=== PATIENT | female | born 1975 | race Caucasian/White ===

== ENCOUNTER 2017-03-24 18:21 | Inpatient (IN) | payer BC ==
[~2017-03-24] VITALS: Ht 160 cm; Wt 65.1 kg
[~2017-03-24 18:21] MED LIST: ADDERALL XR30 MG PO; NAPROSYN500 MG PO; VALIUM5 MG PO; VICODIN 5-3001 EACH PO
[2017-03-24 19:17] LABS: HEMATOCRIT 35.9 % (36.0-46.0); HEMOGLOBIN 12.6 G/DL (11.9-15.5); MCH 32.7 PG (29.0-34.0); MCHC 35.1 G/DL (30.0-36.0); MCV 93.2 FL (83-99); PLATELET COUNT 145 K/uL (156-360); RBC DIS.WIDTH-CV 13.4 % (11.8-14.6); RBC DIS.WIDTH-SD 46.1 % (39-53); RED BLOOD COUNT 3.85 M/uL (3.80-5.20); WHITE BLOOD COUNT 21.4 K/uL (4.1-10.2)
[2017-03-24 19:28] LABS: CHLORIDE 102 mEq/L (99-109); POTASSIUM 4.1 mEq/L (3.7-5.4); SODIUM 135 mEq/L (136-147)
[2017-03-24 19:30] LABS: GLUCOSE 107 mg/dL (70-99)
[2017-03-24 19:30] LABS: APPEARANCE SL.HAZY ((CLEAR)); BILIRUBIN NEGATIVE; BLOOD MODERATE; COLOR YELLOW ((YELLOW)); GLUCOSE (STRIP) NEGATIVE; KETONES 20; LEUKOCYTES MODERATE; NITRITE NEGATIVE; PROTEIN (STRIP) 100; SPECIFIC GRAVITY 1.015 (1.000-1.030); UROBILINOGEN 0.2 MG/DL (0.2-1.0)
[2017-03-24 19:34] LABS: GFR ESTIMATE (CALCULATED) > 59 mL/min/
[2017-03-24 19:35] LABS: UREA NITROGEN (BUN) 11 mg/dL (9-23)
[2017-03-24 19:43] LABS: QUANTITATIVE HCG < 4.0 MIU/ML
[2017-03-24 20:00] LABS: BACTERIA RARE /HPF; EPITHELIAL CELLS RARE /HPF; MUCUS TRACE /LPF; UCUL ADDED? YES; WHITE BLOOD CELLS TNTC /HPF (0-5)
[2017-03-24 21:16] LABS: TOTAL PROTEIN 7.1 g/dL (6.4-8.3)
[2017-03-24 21:18] LABS: TOTAL BILIRUBIN 0.7 mg/dL (0.0-1.0)
[2017-03-24 21:19] LABS: ALKALINE PHOSPHATASE 62 IU/L (3-129)
[2017-03-24 21:21] LABS: AST (GOT) 23 IU/L (2-34); DIRECT BILIRUBIN 0.3 mg/dL (0.0-0.3)
[2017-03-24 21:22] LABS: ALT (GPT) 22 IU/L (3-49); LIPASE 3 U/L (1.0-51.0)
[2017-03-24] MEDS ORDERED: ERGOCALCIF50000 UNIT PO (22:26)
[2017-03-24] MEDS ORDERED: ADDERALL30 MG PO (22:26)
[2017-03-24] MEDS ORDERED: ADVIL200 MG PO (22:27)
[2017-03-24] MEDS ORDERED: XANAX0.25 MG PO (22:27)
[2017-03-25 00:43] VITALS: BP 91/55
[2017-03-25 07:06] LABS: BASOPHIL (%) 0.2 % (0-1); EOSINOPHIL (%) 0.6 % (0-5); EOSINOPHIL COUNT 0.1 K/uL (0-0.3); HEMATOCRIT 32.2 % (36.0-46.0); IMMATURE GRANULOCYTE (%) 0.7 % (0.0-0.7); LYMPHOCYTE (%) 4.4 % (15-42); LYMPHOCYTE COUNT 0.6 K/uL (1.0-2.8); MCHC 32.9 G/DL (30.0-36.0); MCV 94.2 FL (83-99); MONOCYTE (%) 4.7 % (3-12); MONOCYTE COUNT 0.6 K/uL (0-0.8); NEUTROPHIL (%) 89.4 % (45-76); NEUTROPHIL COUNT 11.2 K/uL (1.8-6.4); PLATELET COUNT 126 K/uL (156-360); RBC DIS.WIDTH-CV 13.5 % (11.8-14.6); RBC DIS.WIDTH-SD 47.1 % (39-53); RED BLOOD COUNT 3.42 M/uL (3.80-5.20); WHITE BLOOD COUNT 12.6 K/uL (4.1-10.2)
[2017-03-25 07:07] LABS: HEMOGLOBIN 10.6 G/DL (11.9-15.5)
[2017-03-25 07:13] LABS: CHLORIDE 107 MEQ/L (99-109); CREATININE 0.9 MG/DL (0.6-1.3); GFR ESTIMATE (CALCULATED) > 59 mL/min/; GLUCOSE 95 mg/dL (70-99); POTASSIUM 3.6 MEQ/L (3.7-5.4); SODIUM 138 MEQ/L (136-147); UREA NITROGEN (BUN) 11 mg/dL (9-23)
[2017-03-25 07:21] VITALS: BP 110/63
[2017-03-25 15:31] VITALS: BP 105/53
[2017-03-25 23:03] VITALS: BP 99/55
[2017-03-26 06:37] LABS: BASOPHIL (%) 0.3 % (0-1); EOSINOPHIL (%) 0.7 % (0-5); EOSINOPHIL COUNT 0.1 K/uL (0-0.3); HEMATOCRIT 29.6 % (36.0-46.0); HEMOGLOBIN 10.1 G/DL (11.9-15.5); IMMATURE GRANULOCYTE (%) 0.4 % (0.0-0.7); LYMPHOCYTE (%) 7.7 % (15-42); LYMPHOCYTE COUNT 0.6 K/uL (1.0-2.8); MCH 31.9 PG (29.0-34.0); MCHC 34.1 G/DL (30.0-36.0); MCV 93.4 FL (83-99); MONOCYTE (%) 5.8 % (3-12); MONOCYTE COUNT 0.4 K/uL (0-0.8); NEUTROPHIL (%) 85.1 % (45-76); NEUTROPHIL COUNT 6.5 K/uL (1.8-6.4); PLATELET COUNT 116 K/uL (156-360); RBC DIS.WIDTH-CV 13.7 % (11.8-14.6); RBC DIS.WIDTH-SD 47.2 % (39-53); RED BLOOD COUNT 3.17 M/uL (3.80-5.20); WHITE BLOOD COUNT 7.6 K/uL (4.1-10.2)
[2017-03-26 07:04] LABS: CHLORIDE 106 MEQ/L (99-109); CREATININE 0.9 MG/DL (0.6-1.3); GFR ESTIMATE (CALCULATED) > 59 mL/min/; GLUCOSE 118 mg/dL (70-99); POTASSIUM 3.5 MEQ/L (3.7-5.4); SODIUM 137 MEQ/L (136-147); UREA NITROGEN (BUN) 9 mg/dL (9-23)
[2017-03-26 08:00] VITALS: BP 100/59
[2017-03-26 16:16] VITALS: BP 128/79
[2017-03-27 00:10] VITALS: BP 132/84
[2017-03-27 06:56] LABS: BASOPHIL (%) 0.2 % (0-1); EOSINOPHIL (%) 2.3 % (0-5); EOSINOPHIL COUNT 0.1 K/uL (0-0.3); HEMATOCRIT 26.9 % (36.0-46.0); HEMOGLOBIN 9.3 G/DL (11.9-15.5); IMMATURE GRANULOCYTE (%) 0.4 % (0.0-0.7); LYMPHOCYTE (%) 13.3 % (15-42); LYMPHOCYTE COUNT 0.7 K/uL (1.0-2.8); MCH 32.1 PG (29.0-34.0); MCHC 34.6 G/DL (30.0-36.0); MCV 92.8 FL (83-99); MONOCYTE (%) 11.8 % (3-12); MONOCYTE COUNT 0.6 K/uL (0-0.8); NEUTROPHIL COUNT 3.7 K/uL (1.8-6.4); RBC DIS.WIDTH-CV 13.5 % (11.8-14.6); RBC DIS.WIDTH-SD 46.5 % (39-53); WHITE BLOOD COUNT 5.2 K/uL (4.1-10.2)
[2017-03-27 07:10] LABS: CHLORIDE 108 MEQ/L (99-109); CREATININE 0.7 MG/DL (0.6-1.3); GFR ESTIMATE (CALCULATED) > 59 mL/min/; GLUCOSE 105 mg/dL (70-99); POTASSIUM 3.4 MEQ/L (3.7-5.4); SODIUM 135 MEQ/L (136-147); UREA NITROGEN (BUN) 4 mg/dL (9-23)
[2017-03-27 07:26] VITALS: BP 109/65
[2017-03-27 07:36] LABS: PLATELET CLUMPS PRESENT - PLATELET COUNTS APPEARS DECREASED
[2017-03-27 08:27] LABS: PLATELET COUNT UNABLE TO REPORT K/uL (156-360)
[2017-03-27 16:48] VITALS: BP 123/84
[2017-03-27 23:39] VITALS: BP 125/78
[2017-03-28 07:45] VITALS: BP 107/69
[2017-03-28 16:32] VITALS: BP 130/73
[2017-03-29 07:45] VITALS: BP 135/84
[2017-03-29 13:02] LABS: HEMATOCRIT 29.6 % (36.0-46.0); HEMOGLOBIN 10.1 G/DL (11.9-15.5); MCH 31.4 PG (29.0-34.0); MCHC 34.1 G/DL (30.0-36.0); MCV 91.9 FL (83-99); RBC DIS.WIDTH-CV 13.6 % (11.8-14.6); RBC DIS.WIDTH-SD 46.2 % (39-53); RED BLOOD COUNT 3.22 M/uL (3.80-5.20); WHITE BLOOD COUNT 6.6 K/uL (4.1-10.2)
[2017-03-29 13:06] LABS: PLATELET COUNT 189 K/uL (156-360)
[2017-03-29 13:27] LABS: CHLORIDE 105 MEQ/L (99-109); CREATININE 0.7 MG/DL (0.6-1.3); GFR ESTIMATE (CALCULATED) > 59 mL/min/; GLUCOSE 106 mg/dL (70-99); POTASSIUM 3.9 MEQ/L (3.7-5.4); SODIUM 139 MEQ/L (136-147); UREA NITROGEN (BUN) 4 mg/dL (9-23)
[2017-03-29 16:31] VITALS: BP 109/70
[2017-03-29 23:33] VITALS: BP 114/68
[2017-03-30 07:59] VITALS: BP 113/74
[2017-03-30 15:54] VITALS: BP 121/72
[2017-03-30 23:20] VITALS: BP 114/70
[2017-03-31 05:39] LABS: HEMATOCRIT 28.6 % (36.0-46.0); HEMOGLOBIN 9.9 G/DL (11.9-15.5); MCH 31.7 PG (29.0-34.0); MCHC 34.6 G/DL (30.0-36.0); MCV 91.7 FL (83-99); RBC DIS.WIDTH-CV 13.7 % (11.8-14.6); RBC DIS.WIDTH-SD 46.5 % (39-53); RED BLOOD COUNT 3.12 M/uL (3.80-5.20)
[2017-03-31 05:53] LABS: PLATELET COUNT 299 K/uL (156-360)
[2017-03-31 06:23] LABS: BASOPHIL (%) 0.5 % (0-1); EOSINOPHIL (%) 4.7 % (0-5); EOSINOPHIL COUNT 0.3 K/uL (0-0.3); IMMATURE GRANULOCYTE (%) 0.7 % (0.0-0.7); LYMPHOCYTE (%) 30.8 % (15-42); LYMPHOCYTE COUNT 1.8 K/uL (1.0-2.8); MONOCYTE (%) 10.4 % (3-12); MONOCYTE COUNT 0.6 K/uL (0-0.8); NEUTROPHIL (%) 52.9 % (45-76); NEUTROPHIL COUNT 3.2 K/uL (1.8-6.4)
[2017-03-31 07:13] LABS: ALBUMIN 2.9 G/DL (3.2-4.8); ALKALINE PHOSPHATASE 123 IU/L (3-129); ALT (GPT) 30 IU/L (3-49); AST (GOT) 14 IU/L (2-34); CHLORIDE 102 MEQ/L (99-109); CREATININE 0.6 MG/DL (0.6-1.3); GFR ESTIMATE (CALCULATED) > 59 mL/min/; GLUCOSE 78 mg/dL (70-99); POTASSIUM 3.8 MEQ/L (3.7-5.4); SODIUM 138 MEQ/L (136-147); TOTAL BILIRUBIN 0.3 MG/DL (0.0-1.0); TOTAL PROTEIN 5.6 G/DL (6.4-8.3); UREA NITROGEN (BUN) 7 mg/dL (9-23)
[2017-03-31 07:31] VITALS: BP 99/67
[2017-03-31 12:13] LABS: APPEARANCE CLEAR ((CLEAR)); BILIRUBIN NEGATIVE; BLOOD NEGATIVE; COLOR YELLOW ((YELLOW)); GLUCOSE (STRIP) NEGATIVE; KETONES NEGATIVE; LEUKOCYTES NEGATIVE; NITRITE NEGATIVE; PROTEIN (STRIP) NEGATIVE; SPECIFIC GRAVITY 1.013 (1.000-1.030); UROBILINOGEN 0.2 MG/DL (0.2-1.0)
[2017-03-31 16:37] VITALS: BP 101/69
[2017-03-31 23:20] VITALS: BP 111/65
[2017-04-01 06:43] LABS: CREATININE 0.7 MG/DL (0.6-1.3); GFR ESTIMATE (CALCULATED) > 59 mL/min/
[2017-04-01 06:54] VITALS: BP 103/66
[2017-04-01 11:30] VITALS: BP 111/74
[2017-04-01 15:20] VITALS: BP 109/66
[2017-04-02 00:05] VITALS: BP 111/73
[2017-04-02 06:50] VITALS: BP 112/55
[2017-04-02 15:50] VITALS: BP 112/73
[2017-04-02 22:53] VITALS: BP 107/67
[2017-04-03 07:05] VITALS: BP 100/64
[2017-04-03] MEDS ORDERED: BISAC-EVAC10 MG PR (13:20)
[2017-04-03] MEDS ORDERED: DOCUSATE SODIU100 MG PO (13:20)
== END 2017-04-03 14:07 | disposition home or self-care (01) | DRG 690 ==
LOC: EME 18:21 → EDOF 22:30 → 5EAST 22:30 → ENRESERV 22:48 → 5EAST 23:57 → ENPENDDIS 04-03 → 5EAST 04-03 14:07
PROVIDERS: Family Medicine; Internal Medicine
DX: N13.6 Pyonephrosis (principal); N15.1 Renal and perinephric abscess; B96.20 Unspecified Escherichia coli [E. coli] as the cause of diseases classified elsewhere; K59.00 Constipation, unspecified; N20.2 Calculus of kidney with calculus of ureter; F17.210 Nicotine dependence, cigarettes, uncomplicated
CPT/HCPCS: 73560; 74176; 74177; 76770; 80048; 80053; 80076; 80170; 81003; 82565; 83605; 83690; 84702; 85025; 85027; 87040; 87077; 87086; 87186; 87801; 99281; 99285; J0295; J0696; J1170; J1580; J1885; J2405; J7030; J7050